=== PATIENT | female | born 1985 | race Caucasian/White ===

== ENCOUNTER 2023-03-13 20:19 | Emergency (ER) | payer SELFPAY ==
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
[2023-03-13 20:23] VITALS: BP 127/62; PULSE 97; RESP 14; TEMP 36.8; O2SAT 100
--- NOTE | 2023-03-13 22:23 | PC.NURSE ---
No answer for room
--- NOTE | 2023-03-13 22:34 | PC.NURSE ---
pt.called for room placement, no answer
== END 2023-03-13 22:23 | disposition left against medical advice (07) ==
LOC: ANHED 22:29
PROVIDERS: Emergency Provider Emergency Medicine
DX: M54.2 Cervicalgia (principal)
CPT/HCPCS: 72100; 73070; 99199

== ENCOUNTER 2023-10-17 09:34 | Emergency (ER) | payer SELFPAY ==
--- NOTE | 2023-10-17 09:38 | ED.DENTAL ---
HPI - Dental/Oral General Chief complaint: Dental/Oral Stated complaint: jaw swollen right side, painful Time Seen by Provider: 10/17/23 09:37 Source: patient and RN notes reviewed Mode of arrival: ambulatory Limitations: no limitations History of Present Illness HPI Narrative: Patient presents today with complaints of pain and swelling to right side of face. She reports that she had a dull ache in her jaw beginning last night. Awakened this morning with increased pain and swelling that was not there yesterday. She reports that she does not believe she has any dental issues, it has been approximately 1 year since her last dental visit. She denies any trauma. She denies any fever, chills, sweats. She is able to manage her own secretions without any difficulty. She is able to eat and drink. She is able to speak without difficulty. Related Data Home Medications Medication Instructions Recorded Confirmed cetirizine 10 mg tablet (Zyrtec) 10 mg PO DAILY 10/17/23 10/17/23 Allergies Allergy/AdvReac Type Severity Reaction Status Date / Time No Known Allergies Allergy Verified 10/17/23 09:43 Review of Systems Review of Systems: All systems reviewed & are unremarkable except as noted in HPI and below Constitutional: Constitutional: Reports no additional constitutional complaints ENT: Reports as per HPI, Denies throat swelling and Denies tongue swelling Cardiovascular: Cardiovascular: Reports no additional cardiovascular complaints Respiratory: Respiratory: Reports no additional respiratory complaints Gastrointestinal: Gastrointestinal: Reports no additional gastrointestinal complaints PMFSH Comments At the time of my signature, I reviewed and agree with the nursing past medical, surgical, social, and family history. There is no relevant family history pertinent to the patient complaint. Exam Const: General: cooperative, no acute distress, alert and awake Orientation/consciousness: oriented to person, oriented to place and oriented to time HENMT: Head: normal to inspection Ears: external ears normal and TM's normal bilaterally Face and sinus: no ecchymosis, no erythema and Facial tenderness on exam of face and sinuses (right sided facial tenderness/ swelling, tenderness worst at right parotid) Mouth: Yes moist mucous membranes, No drooling, No malodorous breath, No muffled voice and Yes Abnormal salivary glands and ducts (right) Neck: Neck: normal visual inspection, full ROM and no lymphadenopathy Resp: Effort & Inspection: normal respiratory effort and able to speak in complete sentences Auscultation: clear to auscultation bilaterally, no crackles, no rales, no rhonchi and no wheezes Cardio: Palpation: normal PMI Rate: regular rate Rhythm: regular rhythm Heart sounds: S1 normal heart sound present and S2 normal heart sound present Neuro: General: oriented to person, oriented to place and oriented to time Cranial nerves: Yes CN's II-XII intact bilaterally Psych: Appearance: grossly normal Thought process: Normal thought process present Insight: Good insight present (Psych) Judgement: Good judgement present (Psych) Course Course Level of Care: Express Care Visit Vital Signs Vital signs: Vital Signs Temperature 98.9 F 10/17/23 09:44 Pulse Rate 77 10/17/23 09:44 Respiratory Rate 16 10/17/23 09:44 Blood Pressure 80/64 L 10/17/23 09:44 Pulse Oximetry 99 10/17/23 09:44 Oxygen Delivery Room Air 10/17/23 09:44 Temperature 98.9 F 10/17/23 09:44 Pulse Rate 77 10/17/23 09:44 Respiratory Rate 16 10/17/23 09:44 Blood Pressure 80/64 L 10/17/23 09:44 Pulse Oximetry 99 10/17/23 09:44 Oxygen Delivery Room Air 10/17/23 09:44 Reviewed MDM - Dental/Oral MDM Narrative Medical decision making narrative: Patient with right-sided facial swelling and tenderness. Worse at parotid gland. No drooling, no fever, chills, sweats. She is able to speak in complete sentences and
[2023-10-17 09:44] VITALS: BP 80/64; PULSE 77; RESP 16; TEMP 37.2; O2SAT 99
== END 2023-10-17 10:14 | disposition home or self-care (01) ==
PROVIDERS: Emergency Provider Nurse Practitioner
DX: K11.8 Other diseases of salivary glands (principal)
CPT/HCPCS: 99213; G0463